=== PATIENT | male | born 1975 | race Two or more races ===

== ENCOUNTER 2017-03-25 06:30 | Inpatient (IN) | payer MEDICAID ==
[~2017-03-25] VITALS: Ht 170.2 cm; Wt 67.1 kg
[~2017-03-25 06:30] MED LIST: ATOR80TA PO; GLIM1TAB2 PO; GLIP-115 PO; LOR05T PO; MAGN400T21 GT; METF-372 PO; PIOG30TA37 OR
[2017-03-25 07:02] LABS: Basophils # (auto) 0 uL; Basophils % (auto) 0.5 % (0.0-2.0); CONDITION Y; Eosinophils # (auto) 0.2 uL; Eosinophils % (auto) 1.6 % (0.0-7.0); Hematocrit 39.8 % (41.0-53.0); Hemoglobin 13.9 g/dL (13.5-17.5); Lymphocytes # (auto) 1.3 uL; Mean Corpuscular Hemoglobin 30.1 pg (28.0-32.0); Mean Corpuscular Hgb Conc. 34.8 g/dL (32.0-36.0); Mean Corpuscular Volume 86.4 fL (80.0-100.0); Mean Platelet Volume 9.2 fL (7.4-10.4); Monocytes # (auto) 0.5 uL; Monocytes % (auto) 5.4 % (0.0-12.0); Neutrophils # (auto) 7.2 uL; Neutrophils % (auto) 78.5 % (37.0-80.0); Platelet Count (auto) 269 10^3/uL (140-450); Red Cell Distribution Width 13.4 % (11.6-16.0); White Blood Cell 9.2 10^3/uL (4.4-10.8)
[2017-03-25 07:16] LABS: INR 0.98 (0.9-1.15); Partial Thromboplastin Time 26.6 sec (22.64-33.71); Prothrombin Time 10.7 sec (9.37-12.3)
[2017-03-25 07:27] LABS: Albumin 2.7 g/dL (3.4-5.0); Amylase 31 U/L (25-115); Anion Gap 14 (5-15); Blood Urea Nitrogen 9 mg/dL (7-18); Calcium 8.1 mg/dL (8.5-10.1); Carbon Dioxide 21 mmol/L (21-32); Chloride 102 mmol/L (98-107); Sodium 137 mmol/L (136-145)
[2017-03-25 07:30] LABS: BUN/Creatinine Ratio 7.1; Bilirubin, Total 0.5 mg/dL (0.2-1.0); GFR African American 80 mL/min; GFR Non-African American 66 mL/min; Total Protein 6.2 g/dL (6.4-8.2)
[2017-03-25 07:37] LABS: Alkaline Phosphatase 67 U/L (45-117)
[2017-03-25 07:40] LABS: Aspartate Aminotransferase 12 U/L (15-37); Glucose 724 mg/dL (74-106)
[2017-03-25] MEDS ORDERED: SODIUM CHLORIDE 0.9% 1,000 ML IV ONE ×3 (08:11→12:45)
[2017-03-25 08:27] LABS: Potassium 3.8 mmol/L (3.5-5.1)
[2017-03-25] MEDS ORDERED: InsuLIN REG 1unit/0.01ml Soln (100units/ml) IV ONE ×2 (11:45→14:30)
[2017-03-25] MEDS ORDERED: SODIUM CHLORIDE 0.9% 2,000 ML IV ONE (11:45)
[2017-03-25] MEDS ORDERED: DEXTROSE (50%) 50ML SYRG IV PRN (13:30)
[2017-03-25] MEDS ORDERED: PANTOPRAZOLE SODIUM 40 MG/10 ML VIAL IV ONE (13:30)
[2017-03-25] MEDS ORDERED: FAMOTIDINE (10MG/ML) 2ML VL IV ONE (13:30)
[2017-03-25] MEDS ORDERED: ONDANSETRON HCL 4 MG/2 ML VIAL IV PRN (13:45)
[2017-03-25] MEDS ORDERED: MORPHINE SULFATE 4 MG/ML SYRG IV PRN ×2 (13:45)
[2017-03-25] MEDS ORDERED: ACETAMINOPHEN 325 MG TAB PO PRN (13:45)
[2017-03-25] MEDS ORDERED: NITROGLYCERIN 0.4 MG SL TAB SL PRN (13:45)
[2017-03-25] MEDS ORDERED: LORazepam 0.5 MG TAB PO PRN (13:45)
[2017-03-25] MEDS ORDERED: TEMAZEPAM 15 MG CAP PO PRN (13:45)
[2017-03-25] MEDS ORDERED: cefTRIAXone 1GM/50ML D5W 50 ML IV ONE (13:45)
[2017-03-25] MEDS ORDERED: HYDROcodone-ACET 5/325MG TAB PO PRN (13:45)
[2017-03-25] MEDS ORDERED: DOCUSATE SOD 100 MG CAP PO PRN (13:45)
[2017-03-25] MEDS: MULTIPLE VITAMIN TAB PO SCH (14:20)
[2017-03-25] MEDS: SODIUM CHLORIDE 0.9% 1,000 ML IV SCH (14:20)
[2017-03-25 14:35] LABS: Urine Bilirubin Negative (Negative); Urine Blood Negative /uL (Negative); Urine Color Yellow (Yellow); Urine Ketone Negative (Negative); Urine Nitrite Negative (Negative); Urine RBC 16 /hpf (0 - 3); Urine Squamous Epithelial Cell FEW /hpf (<5); Urine Urobilinogen Normal (Negative)
[2017-03-25 14:36] LABS: Urine Glucose 4+ mg/dL (Normal)
[2017-03-25 16:43] VITALS: BP 148/95
[2017-03-25 17:08] VITALS: BP 140/90
[2017-03-25] MEDS: ACCU-CHEK COMFORT CURVE STRIP VI SCH ×2 (18:07→21:48)
[2017-03-25] MEDS: InsuLIN REG 1unit/0.01ml Soln (100units/ml) SC SCH (18:07)
[2017-03-25] MEDS: Boost Glucose Control 8 Ounces PO SCH ×2 (18:25→21:48)
[2017-03-25] MEDS: ALBUTEROL SULF 2.5 MG/0.5ML(0.5%) NEB SOLN NEB SCH (19:32)
[2017-03-25] MEDS: IPRATROPIUM BROM 0.5 MG/2.5ML INH SOL NEB SCH (19:32)
[2017-03-25 22:00] VITALS: BP 104/68
[2017-03-25] MEDS ORDERED: InsuLIN REG 1unit/0.01ml Soln (100units/ml) SC SCH (22:00)
[2017-03-26] MEDS: ALBUTEROL SULF 2.5 MG/0.5ML(0.5%) NEB SOLN NEB SCH ×3 (01:25→11:35)
[2017-03-26] MEDS: IPRATROPIUM BROM 0.5 MG/2.5ML INH SOL NEB SCH ×3 (01:25→11:35)
[2017-03-26 05:00] VITALS: BP 90/65
[2017-03-26] MEDS: Boost Glucose Control 8 Ounces PO SCH ×2 (05:42→12:00)
[2017-03-26] MEDS: SODIUM CHLORIDE 0.9% 1,000 ML IV SCH (05:42)
[2017-03-26 05:56] LABS: Basophils # (auto) 0 uL; Basophils % (auto) 0.6 % (0.0-2.0); CONDITION Y; Eosinophils # (auto) 0.2 uL; Eosinophils % (auto) 2.5 % (0.0-7.0); Lymphocytes # (auto) 2.6 uL; Mean Corpuscular Hemoglobin 30.1 pg (28.0-32.0); Mean Corpuscular Hgb Conc. 34.2 g/dL (32.0-36.0); Mean Corpuscular Volume 88.2 fL (80.0-100.0); Mean Platelet Volume 9.3 fL (7.4-10.4); Monocytes # (auto) 0.6 uL; Monocytes % (auto) 6.7 % (0.0-12.0); Neutrophils # (auto) 5.4 uL; Neutrophils % (auto) 61.2 % (37.0-80.0); Platelet Count (auto) 251 10^3/uL (140-450); Red Cell Distribution Width 13.6 % (11.6-16.0); White Blood Cell 8.8 10^3/uL (4.4-10.8)
[2017-03-26 06:07] LABS: Albumin 2.5 g/dL (3.4-5.0); Anion Gap 9 (5-15); Blood Urea Nitrogen 11 mg/dL (7-18); Calcium 7.6 mg/dL (8.5-10.1); Carbon Dioxide 26 mmol/L (21-32); Chloride 107 mmol/L (98-107); Glucose 280 mg/dL (74-106); Potassium 4.1 mmol/L (3.5-5.1); Sodium 142 mmol/L (136-145)
[2017-03-26 06:09] LABS: Aspartate Aminotransferase 8 U/L (15-37); GFR African American 115 mL/min; GFR Non-African American 95 mL/min
[2017-03-26 06:14] LABS: Alkaline Phosphatase 55 U/L (45-117); Bilirubin, Total 0.4 mg/dL (0.2-1.0); Total Protein 5.5 g/dL (6.4-8.2)
[2017-03-26] MEDS: ACCU-CHEK COMFORT CURVE STRIP VI SCH ×2 (06:58→11:11)
[2017-03-26] MEDS: InsuLIN REG 1unit/0.01ml Soln (100units/ml) SC SCH ×2 (06:58→11:11)
[2017-03-26 09:00] VITALS: BP_SYST 100; BP_SYST 130; BP_DIAS 60; BP_DIAS 68
[2017-03-26] MEDS ORDERED: cefTRIAXone 1GM/50ML D5W 50 ML IV SCH (09:00)
[2017-03-26] MEDS: MULTIPLE VITAMIN TAB PO SCH (09:22)
[2017-03-26] MEDS ORDERED: FAMOTIDINE (10MG/ML) 2ML VL IV SCH (10:00)
[2017-03-26] MEDS ORDERED: PANTOPRAZOLE SODIUM 40 MG/10 ML VIAL IV SCH (10:00)
[2017-03-26 13:41] VITALS: BP 100/68
== END 2017-03-26 14:45 | disposition home or self-care (01) | DRG 141 ==
LOC: EDBD 06:30 → ER 06:30 → TELE 06:31 → TELE-E-ADS 18:01 → TELE-WESTW 19:17
PROVIDERS: ADMIT Internal Medicine; ATTEND Internal Medicine
DX: J45.909 Unspecified asthma, uncomplicated (principal); E43 Unspecified severe protein-calorie malnutrition; E11.65 Type 2 diabetes mellitus with hyperglycemia; I10 Essential (primary) hypertension; E44.0 Moderate protein-calorie malnutrition; E78.5 Hyperlipidemia, unspecified; F17.210 Nicotine dependence, cigarettes, uncomplicated; F32.9 Major depressive disorder, single episode, unspecified; F41.9 Anxiety disorder, unspecified; I25.10 Atherosclerotic heart disease of native coronary artery without angina pectoris; F15.10 Other stimulant abuse, uncomplicated; I25.2 Old myocardial infarction; K21.9 Gastro-esophageal reflux disease without esophagitis; K29.00 Acute gastritis without bleeding; Z82.49 Family history of ischemic heart disease and other diseases of the circulatory system; Z83.3 Family history of diabetes mellitus; Z68.23 Body mass index [BMI] 23.0-23.9, adult; Z71.89 Other specified counseling; Z83.2 Family history of diseases of the blood and blood-forming organs and certain disorders involving the immune mechanism
CPT/HCPCS: 36415; 71020; 80053; 80307; 81001; 82150; 82962; 83036; 83690; 84443; 84484; 85025; 85610; 85730; 93306; 94640; 94761; 96361; 96365; 96372; 96375; C9113; J0696; J1815

== ENCOUNTER 2017-03-30 21:41 | Emergency (ER) | payer MEDICAID ==
[~2017-03-30] VITALS: Ht 170.2 cm; Wt 68.0 kg
[~2017-03-30 21:41] MED LIST changes: -GLIM1TAB2 PO; -LOR05T PO
[2017-03-30 22:35] LABS: Basophils # (auto) 0.1 uL; CONDITION Y; Eosinophils # (auto) 0.2 uL; Eosinophils % (auto) 3.1 % (0.0-7.0); Hematocrit 42.8 % (41.0-53.0); Hemoglobin 14.5 g/dL (13.5-17.5); Lymphocytes # (auto) 3.2 uL; Lymphocytes % (auto) 41.2 % (10.0-50.0); Mean Corpuscular Hemoglobin 29.7 pg (28.0-32.0); Mean Corpuscular Volume 87.4 fL (80.0-100.0); Monocytes # (auto) 0.6 uL; Monocytes % (auto) 7.4 % (0.0-12.0); Neutrophils # (auto) 3.6 uL; Neutrophils % (auto) 47.3 % (37.0-80.0); Platelet Count (auto) 271 10^3/uL (140-450); Red Cell Distribution Width 13.7 % (11.6-16.0); White Blood Cell 7.7 10^3/uL (4.4-10.8)
[2017-03-30 22:59] LABS: Albumin 3.1 g/dL (3.4-5.0); BUN/Creatinine Ratio 20.2; Bilirubin, Total 0.5 mg/dL (0.2-1.0); Calcium 8.7 mg/dL (8.5-10.1); Potassium 4.2 mmol/L (3.5-5.1); Total Protein 6.2 g/dL (6.4-8.2)
[2017-03-30 23:13] LABS: INR 0.93 (0.9-1.15); Partial Thromboplastin Time 26.1 sec (22.64-33.71); Prothrombin Time 10.1 sec (9.37-12.3)
[2017-03-30] MEDS ORDERED: SODIUM CHLORIDE 0.9% 1,000 ML IV ONE (23:15)
[2017-03-30] MEDS ORDERED: InsuLIN REG 1unit/0.01ml Soln (100units/ml) IV ONE (23:15)
[2017-03-30 23:51] LABS: Allen Test Yes; Base Excess 0.9 mmol/L (-2.0-2.0); Blood MetHb 0.2 % (0.0-1.5); HCO3 24.8 mmol/L (22-26.0); HHb 3.9 % (0.0-5.0); MODE ROOM AIR; O2Hb 93.9 % (94.0-97.0); PCO2 37.3 mmHg (35.0-45.0); PCO2(T) 37.3 mmHg (35.0-45.0); PO2 87.8 mmHg (80.0-100.0); PO2(T) 87.8 mmHg (80.0-100.0); Sample Type Arterial; pH 7.441 (7.350-7.450)
[2017-03-31 00:03] LABS: Magnesium 2.3 mg/dL (1.6-2.6)
[2017-03-31 00:37] LABS: B-Type Natriuretic Peptide 1.33 pg/mL (0-100)
[2017-03-31 00:43] LABS: Temperature: 22.9 C (20.0-25.0)
[2017-03-31 01:14] VITALS: BP 110/70
== END 2017-03-31 03:21 | disposition home or self-care (01) ==
LOC: EDBD 21:41 → ER 21:44
DX: E11.9 Type 2 diabetes mellitus without complications (principal); R10.9 Unspecified abdominal pain; E78.5 Hyperlipidemia, unspecified; I25.2 Old myocardial infarction; F17.210 Nicotine dependence, cigarettes, uncomplicated; F14.10 Cocaine abuse, uncomplicated; F15.10 Other stimulant abuse, uncomplicated; Z86.73 Personal history of transient ischemic attack (TIA), and cerebral infarction without residual deficits
CPT/HCPCS: 36415; 36600; 71010; 80053; 82010; 82805; 82962; 83735; 83880; 84484; 85025; 85379; 85610; 85730; 96374; 99285; J1815; 94761

== ENCOUNTER 2017-05-25 18:48 | Emergency (ER) | payer MEDICAID ==
[~2017-05-25] VITALS: Ht 170.2 cm; Wt 66.2 kg
[2017-05-25 18:56] VITALS: BP 121/89
[2017-05-25] MEDS ORDERED: SODIUM CHLORIDE 0.9% 1,000 ML IV ONE ×2 (19:22→21:00)
[2017-05-25] MEDS ORDERED: InsuLIN REG 1unit/0.01ml Soln (100units/ml) IV ONE (19:30)
[2017-05-25 19:52] LABS: Basophils # (auto) 0.1 uL; Basophils % (auto) 0.6 % (0.0-2.0); CONDITION Y; Eosinophils # (auto) 0.2 uL; Eosinophils % (auto) 1.6 % (0.0-7.0); Hematocrit 47.5 % (41.0-53.0); Hemoglobin 16.2 g/dL (13.5-17.5); Lymphocytes # (auto) 2.3 uL; Lymphocytes % (auto) 20.4 % (10.0-50.0); Mean Corpuscular Hgb Conc. 34.1 g/dL (32.0-36.0); Mean Platelet Volume 9.6 fL (7.4-10.4); Monocytes # (auto) 0.6 uL; Monocytes % (auto) 5.8 % (0.0-12.0); Neutrophils % (auto) 71.6 % (37.0-80.0); Platelet Count (auto) 331 10^3/uL (140-450); Red Cell Distribution Width 13.6 % (11.6-16.0); White Blood Cell 11.1 10^3/uL (4.4-10.8)
[2017-05-25 20:15] LABS: Albumin 3.7 g/dL (3.4-5.0); BUN/Creatinine Ratio 15.5; Calcium 9.2 mg/dL (8.5-10.1); Potassium 4.6 mmol/L (3.5-5.1); Total Protein 7.9 g/dL (6.4-8.2)
[2017-05-25 20:23] LABS: Bilirubin, Total 0.5 mg/dL (0.2-1.0)
== END 2017-05-25 22:54 ==
LOC: ER 18:48
DX: E11.9 Type 2 diabetes mellitus without complications (principal); I10 Essential (primary) hypertension; E78.5 Hyperlipidemia, unspecified; I25.2 Old myocardial infarction; F17.210 Nicotine dependence, cigarettes, uncomplicated; F15.10 Other stimulant abuse, uncomplicated; F11.20 Opioid dependence, uncomplicated; Z86.73 Personal history of transient ischemic attack (TIA), and cerebral infarction without residual deficits
CPT/HCPCS: 36415; 80053; 82962; 85025; 94761; 96361; 96374; 99285; J1815; J7030